=== PATIENT | male | born 1985 | race Two or more races ===

== ENCOUNTER 2020-05-18 05:50 | Emergency (ER) | payer MEDICAID ==
[~2020-05-18] VITALS: Ht 170.2 cm; Wt 81.6 kg
[2020-05-18] MEDS ORDERED: PROPOFOL 20 ML IV ONE (06:07)
--- NOTE | 2020-05-18 06:12 | NUR ---
PT AAOX4. AMBULATORY WITH STEDY GAIT. BIBSELF C/O R SHOULDER DISLOCATION WHILE ASLEEP. PT STATED IT HAS HAPPENED 40 TIMES. MD AT BEDSIDE FOR EVAL.
--- NOTE | 2020-05-18 06:22 | NUR ---
MD AT BEDSIDE AND RT FOR CONCIOUS SEDATION
[2020-05-18] MEDS ORDERED: PROPOFOL 200 MG/20 ML VIAL IV ONE (06:30)
--- NOTE | 2020-05-18 06:32 | NUR ---
RT rt called to er bed 9 for moderate sedation standby. pt sating 99% pre procedure. during procedure pt saturation was between 97 and 99%. post procedure pt saturation was 99%. ambu bag was at bedside, on standby if needed. no complications during procedure.
--- NOTE | 2020-05-18 06:38 | NUR ---
RADIOLOGY AT BEDSIDE FOR XRAY
[2020-05-18 07:02] VITALS: BP 127/75
--- NOTE | 2020-05-18 07:02 | NUR ---
IV removed. Catheter intact and site benign. Pressure and 4x4 applied to site. No bleeding noted.
--- NOTE | 2020-05-18 07:02 | NUR ---
Patient discharged to home in stable condition. Written and verbal after care instructions given. Patient verbalizes understanding of instruction. Pt ambualted with steady gait. Picked up by mother.
== END 2020-05-18 07:03 | disposition home or self-care (01) ==
LOC: ER 05:53
DX: S43.084A Other dislocation of right shoulder joint, initial encounter (principal); X58.XXXA Exposure to other specified factors, initial encounter; Y93.89 Activity, other specified; Y92.89 Other specified places as the place of occurrence of the external cause; Y99.8 Other external cause status
CPT/HCPCS: 23650; 73030; 99285; J2704; J7030